=== PATIENT | male | born 1940 | race Caucasian/White ===

== ENCOUNTER 2017-06-14 10:28 | Emergency (ER) | payer MEDICARE, OTHER ==
[2017-06-14 13:24] VITALS: BP 137/73
--- NOTE | 2017-06-14 13:29 | ED ---
HPI Chest Pain - HPI Summary HPI Summary: 76 yr old male with the complaint of chest wall pain. Onset over a week ago. He fell in the hill on ice and landed on the left side of his chest. He states he went to [facility] and had xrays that were negative, but he has continued pain in the left side of his chest with moving, pressing and breathing and he has felt a little winded at times as well. - History of Current Complaint Time Seen by Provider: 06/14/17 13:10 - Allergy/Home Medications Allergies/Adverse Reactions: Allergies Allergy/AdvReac Type Severity Reaction Status Date / Time No Known Allergies Allergy Verified 06/14/17 13:41 Home Medications: Home Medications Allopurinol TAB* [Zyloprim 300 MG TAB*] 06/14/17 [History] Atorvastatin* [Lipitor 40 MG*] 06/14/17 [History] Cholecalciferol TAB* [Vitamin D TAB*] 06/14/17 [History] Lisinopril TAB* [Prinivil TAB 10 MG*] 20 06/14/17 [History] Mesalamine [Apriso] 06/14/17 [History] amLODIPine TAB* [Norvasc 5 mg TAB*] 10 06/14/17 [History] PMH/Surg Hx/FS Hx/Imm Hx Infectious Disease History: Denies: Traveled Outside the [place] in Last 30 Days - Family History Known Family History: Positive: None - Social History Occupation: Retired Review of Systems Constitutional: Negative Positive: Chest Pain Positive: Shortness Of Breath All Other Systems Reviewed And Are Negative: Yes Physical Exam Triage Information Reviewed: Yes Vital Signs Reviewed: Yes Appearance: Positive: Well-Appearing, No Pain Distress Skin: Positive: Warm, Skin Color Reflects Adequate Perfusion Head/Face: Positive: Normal Head/Face Inspection Neck: Positive: Supple, Nontender Respiratory/Lung Sounds: Positive: Clear to Auscultation, Breath Sounds Present , Other - chest wall tenderness over the left anterior chest. Cardiovascular: Positive: RRR. Negative: Murmur Abdomen Description: Positive: Nontender, Other: - obese Musculoskeletal: Positive: Strength/ROM Intact Neurological: Positive: Sensory/Motor Intact, Alert, Oriented to Person Place, Time, CN Intact II-III Psychiatric: Positive: Normal - Alfred Coma Scale Best Eye Response: 4 - Spontaneous Best Motor Response: 6 - Obeys Commands Best Verbal Response: 5 - Oriented Coma Scale Total: 15 Diagnostics - Laboratory Lab Statement: Any lab studies that have been ordered have been reviewed, and results considered in the medical decision making process. - CT chest ct CT Interpretation: No Acute Changes CT Interpretation Completed By: Radiologist Chest Pain Course/Dx - Course Course Of Treatment: 76 yr old with chest wall contusion. DC home good condition. - Diagnoses Provider Diagnoses: Chest wall contusion Discharge - Discharge Plan Condition: Good Disposition: HOME Patient Education Materials: Chest Wall Pain (ED) Referrals: Mae Weathers MD [Primary Care Provider] -
--- NOTE | 2017-06-14 13:44 | RAD ---
HISTORY: Subacute trauma, left-sided chest pain COMPARISONS: None relevant available at the time of dictation TECHNIQUE: Multiple contiguous axial CT scans of the chest were obtained without intravenous contrast. Coronal and sagittal multiplanar reformations are also submitted for review. FINDINGS: The study is limited by the lack of intravenous contrast. This limits evaluation of the solid organs and vasculature. NECK AND THYROID: The lower neck and thyroid are unremarkable. CHEST WALL: There is no lower cervical, axillary, or supraclavicular lymphadenopathy by size criteria. HEART AND PERICARDIUM: Coronary and valvular cardiac calcifications are noted. AORTA AND PULMONARY VASCULATURE: There is mild atherosclerosis of the thoracic aorta. The pulmonary vasculature is unremarkable for technique. MEDIASTINUM: There is no mediastinal lymphadenopathy by size criteria. LUCRECIA: There is no hilar lymphadenopathy by size criteria. AIRWAY AND ESOPHAGUS: The airway is unremarkable, without endobronchial filling defect. The esophagus is grossly normal. LUNG PARENCHYMA: There is linear pleuroparenchymal scarring of the right lung base. PLEURA: No pleural abnormalities are noted. UPPER ABDOMEN: The upper abdomen is unremarkable. BONES AND SOFT TISSUES: There is diffuse osteopenia. There is a chronic compression deformity of T12 without osseous retropulsion. Mild degenerative changes are noted. OTHER: None. IMPRESSION: 1. OSTEOPENIA. 2. MILD PLEUROPARENCHYMAL SCARRING OF THE RIGHT LUNG BASE. 3. NO ACUTE NONCONTRAST CT PATHOLOGY OF THE VISUALIZED PORTION OF THE CHEST.
== END 2017-06-14 14:13 | disposition home or self-care (01) ==
LOC: UCCORT 10:28
DX: S20.219A Contusion of unspecified front wall of thorax, initial encounter (principal); W00.0XXA Fall on same level due to ice and snow, initial encounter; Y93.9 Activity, unspecified; Y92.89 Other specified places as the place of occurrence of the external cause
CPT/HCPCS: 71250; 99202; G0463

== ENCOUNTER 2017-11-11 12:22 | Emergency (ER) | payer MEDICARE ==
[2017-11-11 12:56] VITALS: BP 126/68
--- NOTE | 2017-11-11 13:42 | UC ---
Back Pain HPI - HPI Summary HPI Summary: The patient is a 77-year-old male with right back pain 2-3 months. The pain is constant. He denies any trauma. He denies any UTI symptoms. He does have a remote history of prostate cancer. Was treated with radiation therapy. His pain worsens with twisting. No change with bending. Increases with a deep breath or cough. Had no chest pain or shortness of breath. Denies any abdominal pain. He has been seen a chiropractor. He states that the chiropractic manipulation has not helped at all. - History of Current Complaint Chief Complaint: UCBackPain Stated Complaint: LOWER BACK PAIN R SIDE Time Seen by Provider: 11/11/17 13:32 Hx Obtained From: Patient Onset/Duration: Gradual Onset, Lasting Weeks - 2-3 mos Timing: Constant Severity Initially: Mild Severity Currently: Moderate Pain Intensity: 7 Pain Scale Used: 0-10 Numeric Character: Aching, Throbbing, Spasmodic Aggravating Factor(s): Movement, Cough Alleviating Factor(s): Rest - Allergies/Home Medications Allergies/Adverse Reactions: Allergies Allergy/AdvReac Type Severity Reaction Status Date / Time No Known Allergies Allergy Verified 11/11/17 12:46 Home Medications: Home Medications Allopurinol TAB* [Zyloprim 300 MG TAB*] 300 mg PO DAILY 11/11/17 [History Confirmed 11/11/17] Naproxen Sodium [Aleve] 440 mg PO BID PRN 11/11/17 [History Confirmed 11/11/17] PMH/Surg Hx/FS Hx/Imm Hx Endocrine History: Dyslipidemia Cardiovascular History: Hypertension Neurological History: Other Other Neurological History: ulcerative colitis Cancer History: Prostate Cancer - Surgical History Surgical History: Yes Surgery Procedure, Year, and Place: umbillical. nasal polyp - Family History Known Family History: Positive: Hypertension - Social History Alcohol Use: Rare Substance Use Type: None Smoking Status (MU): Current Every Day Smoker Type: Smokeless Tobacco Amount Used/How Often: 1 can daily Review of Systems Constitutional: Negative Skin: Negative Eyes: Negative ENT: Negative Respiratory: Negative Cardiovascular: Negative Gastrointestinal: Negative Genitourinary: Negative Motor: Negative Neurovascular: Negative Musculoskeletal: Myalgia Neurological: Negative Psychological: Negative Is Patient Immunocompromised?: No All Other Systems Reviewed And Are Negative: Yes Physical Exam Triage Information Reviewed: Yes Appearance: Well-Appearing, No Pain Distress, Well-Nourished Vital Signs: Initial Vital Signs Temp 98.3 F 11/11/17 12:49 Pulse 77 11/11/17 12:49 Resp 18 11/11/17 12:49 BP 126/68 11/11/17 12:49 Pulse Ox 95 11/11/17 12:49 Eye Exam: Normal ENT: Positive: Hearing grossly normal. Negative: Nasal congestion, Nasal drainage, Trismus, Muffled voice, Hoarse voice Neck: Positive: Supple, Nontender, No Lymphadenopathy Respiratory: Positive: Lungs clear, Normal breath sounds, No respiratory distress, No accessory muscle use Cardiovascular: Positive: RRR, No Murmur Abdomen Description: Positive: Nontender, No Organomegaly. Negative: Bruit, CVA Tenderness (R), CVA Tenderness (L), Distended, Hepatomegaly, McBurney's Point Tenderness, Peritoneal Signs, Pulsatile Mass Musculoskeletal: Positive: ROM Intact, No Edema Neurological: Positive: Alert, Muscle Tone Normal Psychological Exam: Normal Skin Exam: Normal Back Pain Course/Dx - Course Course Of Treatment: u dip + protein, + bili - Differential Dx/Diagnosis Provider Diagnoses: back pain of uncertain cause Discharge - Sign-Out/Discharge Documenting (check all that apply): Discharge/Admit/Transfer - Discharge Plan Condition: Stable Disposition: HOME Prescriptions: Cyclobenzaprine TAB* [Flexeril TAB*] 5 mg PO TID PRN #12 tab PRN Reason: Spasms Patient Education Materials: Back Pain (ED) Referrals: Mae Weathers MD [Primary Care Provider] - 4 Days Additional Instructions: I am not sure of the cause of your right sided back pain which has become a chronic issue You had some abnormalities of your urine test You had a small amt of bilirubin and protein in your urine I suspect you have muscle spasms causing your pain and decreased range of motion but because of these abnormalities suggest you follow up with your physician for further investigation. - Billing Disposition and Condition Condition: STABLE Disposition: Home Images Front/Back of Body, Lg (Phillips): 1 - pain here but nontender
--- NOTE | 2017-11-11 14:02 | RAD ---
INDICATION: Mid RIGHT thoracic pain worse with deep inspiration. COMPARISON: October 09, 2010 TECHNIQUE: Dual energy PA and routine lateral views of the chest were obtained. REPORT: Mild linear atelectasis at the LEFT lung base. Negative for pleural effusion or pneumothorax. The heart, pulmonary vasculature, and mediastinal contours are unremarkable. No thoracic fractures evident. IMPRESSION: #. Mild LEFT basilar atelectasis without additional radiographic finding.
[2017-11-11 18:39] LABS: ABS Basophils 0.1 10^3/ul (0-0.2); ABS Eosinophils 0.2 10^3/ul (0-0.6); ABS Lymphocytes 1.7 10^3/ul (1.0-4.8); ABS Monocytes 0.9 10^3/ul (0-0.8); ABS Neutrophils 8.5 10^3/ul (1.5-7.7); ABS Nucleated RBC 0 10^3/ul; Eosinophil % 1.5 % (0-6); Hematocrit 51 % (42-52); Hemoglobin 17.1 g/dl (14.0-18.0); Lymphocyte % 15.2 % (25-47); Mean Corpuscular HGB Conc 34 g/dl (31-36); Mean Corpuscular Hemoglobin 33 pg (27-31); Mean Corpuscular Volume 97 fL (80-94); Mean Platelet Volume 9.8 um3 (7.4-10.4); Nucleated Red Blood Cells % 0.1; Platelet Count 220 10^3/ul (150-450); Red Blood Count 5.26 10^6/ul (4.00-5.40); Red Cell Distribution Width 15 % (10.5-15); White Blood Count 11.4 10^3/ul (3.5-10.8)
[2017-11-11 18:59] LABS: EGFR Non-African American 68.7 (>60)
== END 2017-11-11 14:44 | disposition home or self-care (01) ==
LOC: UCCORT 12:22
DX: M54.9 Dorsalgia, unspecified (principal); I10 Essential (primary) hypertension; F17.220 Nicotine dependence, chewing tobacco, uncomplicated; Z85.46 Personal history of malignant neoplasm of prostate
CPT/HCPCS: 36415; 71046; 80053; 81003; 85025; 85652; 99212; G0463

== ENCOUNTER 2017-12-03 14:00 | Emergency (ER) | payer MEDICARE ==
--- OUTSIDE RECORDS SUMMARY | 2017-12-03 14:11 | XMS REPORT ---
:1940 External Reference #:[id number] Author Organization [facility] Address [address], [address] [place] [address] Phone [phone] Care Team Providers Name Role Phone Mae Weathers MD Care Team Information Freelance Photographer Unavailable Mae Weathers MD Primary Care Physician Unavailable Payers Type Date Identification Numbers Payment Provider Subscriber Commercial Policy Number: [id number] Today Options Medicare Mike Chavez PayID: [id number] [address] [address] [place] [address] Workers Compensation Policy Number: [employer] Mike Chavez [id number] Group Name: Workers Compensation [address] PayID: [id number] [place] [address] Problems Date Description Provider Status Onset: 10/06/2012 Localized, primary osteoarthritis Ascencion Muhammad M.D., Active FACS Onset: 10/19/2012 Gouty arthropathy Ascencion Muhammad M.D., Active FACS Onset: 01/31/2015 Chronic left-sided ulcerative Mae Weathers MD Active colitis Onset: 01/31/2015 Malignant tumor of prostate Mae Weathers MD Active Onset: 01/31/2015 Pure hypercholesterolemia Mae Weathers MD Active Onset: 01/31/2015 Essential hypertension Mae Weathers MD Active Onset: 01/31/2015 Idiopathic gout, right ankle and Mae Weathers MD Active foot Onset: 01/31/2015 Vitamin D deficiency Mae Weathers MD Active Onset: 05/01/2003 Enthesopathy Active Onset: 01/31/2015 Psoriasis Mae Weathers MD Active Onset: 01/31/2015 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 Active Onset: 11/20/2016 Knee joint effusion Naga Bustamante M.D. Active Onset: 01/04/2017 Sciatica Mae Weathers MD Active Onset: 05/19/2017 Malaise and fatigue Mae Weathers MD Active Onset: 05/19/2017 Disorder of nasal cavity Mae Weathers MD Active Onset: 08/19/2017 Chest pain Mae Weathers MD Active Onset: 08/19/2017 Benign prostatic hypertrophy without Mae Weathers MD Active outflow obstruction Family History Date Family Member(s) Problem(s) Comments Father due to Unknown Causes () Mother Brain tumor : (age 74 Years) Mother due to Cancer, Brain Children 4 Siblings 3 First Sister due to Anesthetic () Overdose In Surgery Social History Type Date Description Comments Education Highest level completed, 12th grade Lives With Girlfriend Diet Patient follows no dietary restrictions Pets None Occupation Retired CONSTRUCTION; BUT STILL WORKS PT [employer] ADL's/IADL's Independent with all ADL's ADL's/IADL's Independent with all IADL's Hobbies Golfing Hobbies Gambling Hobbies Sports Cigarette Use Never Smoked Cigarettes Smokeless Tobacco Current Smokeless Tobacco User, Uses Occasionally ETOH Use Rarely consumes alcohol 2 DR/MO Smoking Chews Tobacco A couple cans per week Smoking Chews Tobacco Patient quit chewing about 2 weeks ago. Daily Caffeine Current Caffeine User Daily Caffeine Consumes on average 1 cup of regular coffee per day Allergies, Adverse Reactions, Alerts Date Description Reaction Status Severity Comments 10/06/2012 NKDA active Medications Medication Date Status Form Strength Qnty SIG Indications Ordering Provider Nitroglycerin 08/19 Active Tablets Sub 0.4mg 25tab 1 tab s under jaz Weathers MD every 5 min x 3 for cp; call 911 if no relief Tamsulosin HCL 08/19 Active Capsules 0.4mg 30cap take 1 s capsules Jasiel by alexander HENNESSY every day Apriso 01/04 Active Caps ER 24HR 0.375gm 360ca Take Four ps Capsules Olga Weathers MD Every Day Vitamin D Active Capsules 1000Unit 60cap 1 po qd Unknown / s Amlodipine Active Tablets 10mg 90tab 1 by mouth Besylate / s every day MD Jasiel Atorvastatin Active Tablets 40mg 90tab 1 by mouth Mae Calcium s every charlie Weathers MD Allopurinol Active Tablets 300mg 90tab take 1 s tablet by alexander Weathers MD every day Lisinopril Active Tablets 20mg 90tab take 1 s tablet by alexander Weathers MD every day Aspir-Low Active Tablets DR 81mg 1 by mouth / every day Augmented 04/29 Hx Ointment 0.05% 15gm apply L40.9 Betamethasone sparingly Jacob Weathers - to 08/19 affected areas on left forearm at bedtime Indomethacin 11/20 Hx Capsules 50mg 14cap 1 tab by s mouth Pompo, three M.D. times a day as needed Indomethacin 06/22 Hx Capsules 50mg 30cap 1 by mouth s 3x/day Jasiel, - with food 11/20 or snack as needed for acute gout symptoms, taper quickly Ciclopirox 06/22 Hx Cream 0.77% 15gm apply to B35.4 affected Frida Weathers areas 11/20 twice a /2016 day Indomethacin 01/31 Hx Capsules 50mg 40cap 1 by mouth s 3x/day Jasiel - with food 06/22 or snack as needed for acute gout symptoms, taper quickly Azulfidine 01/31 Hx Tablets 500mg Frida Weathers MD 06/22 No Active 10/06 Hx Unknown Medications - 10/06 Aspirin Hx Chewtabs 81mg 1 po qd Unknown Children - 01/31 Indocin Hx Suppository 30uni 1 po qd Unknown / ts for 2 weeks Furosemide 00 Hx Tablets 30tab 1 po qd Unknown / s Amlodipine Hx Tablets 10mg 90tab 1 po qd Unknown Bes s Flomax Hx Capsules 0.4mg 30cap po qd Unknown / s Lotrel 00 Hx Capsules 10-20mg 30cap 1 po qd Unknown / s Glucosamine Hx Tablets 1 po qd Unknown - 01/31 Apriso 00 Hx Caps ER 24HR 0.375gm 360ca 4 by mouth Ame /0000 ps Every day Frida Weathers MD 11/20 Aspir-Low Hx Tablets DR 81mg 1 by mouth Unknown / every day - 11/20 Hydrocortisone Hx Enema 100mg/60M Use 1 Unknown L Enema - Rectally 11/20 bid Directed Immunizations CPT Code Status Date Vaccine Lot # [id number] Given 04/29/2017 Tdap injection [id number] Given 05/28/2000 Tetnus Injection Vital Signs Date Vital Result Comment 11/24/2017 BP Systolic Sitting Left Arm 126 mmHg BP Diastolic Sitting Left Arm 74 mmHg Body Temperature 97.9 F Heart Rate 74 /min Respiratory Rate 18 /min Height 69 inches 5'9" Weight 257.25 lb BMI (Body Mass Index) 38.0 kg/m2 BSA (Body Surface Area) 2.30 m2 [place] body weight in kilograms 73 08/23/2017 BP Systolic Sitting Left Arm 122 mmHg BP Diastolic Sitting Left Arm 80 mmHg Heart Rate 75 /min Respiratory Rate 16 /min Height 69 inches 5'9" Weight 267.00 lb BMI (Body Mass Index) 39.4 kg/m2 BSA (Body Surface Area) 2.34 m2 [place] body weight in kilograms 73 08/19/2017 BP Systolic 126 mmHg BP Diastolic 76 mmHg Body Temperature 96.9 F Heart Rate 74 /min Height 69 inches 5'9" Weight 264.00 lb BMI (Body Mass Index) 39.0 kg/m2 BSA (Body Surface Area) 2.32 m2 [place] body weight in kilograms 73 O2 % BldC Oximetry 94 % 05/19/2017 BP Systolic Sitting Left Arm 128 mmHg BP Diastolic Sitting Left Arm 80 mmHg Body Temperature 97.8 F Heart Rate 67 /min Weight 263.00 lb O2 % BldC Oximetry 94 % 05/04/2017 BP Systolic Sitting Left Arm 134 mmHg BP Diastolic Sitting Left Arm 78 mmHg Body Temperature 97.8 F Heart Rate 83 /min Height 68.75 inches 5'8.75" Weight 262.00 lb BMI (Body Mass Index) 39.0 kg/m2 BSA (Body Surface Area) 2.31 m2 [place] body weight in kilograms 72 O2 % BldC Oximetry 94 % 04/29/2017 BP Systolic Sitting Left Arm 146 mmHg BP Diastolic Sitting Left Arm 84 mmHg Body Temperature 97.6 F Heart Rate 70 /min Height 68.75 inches 5'8.75" Weight 263.00 lb BMI (Body Mass Index) 39.1 kg/m2 BSA (Body Surface Area) 2.31 m2 [place] body weight in kilograms 72 O2 % BldC Oximetry 97 % 01/04/2017 BP Systolic 122 mmHg BP Diastolic 80 mmHg Height 70 inches 5'10" Weight 264.00 lb BMI (Body Mass Index) 37.9 kg/m2 BSA (Body Surface Area) 2.35 m2 [place] body weight in kilograms 75 11/20/2016 BP Systolic Sitting Left Arm 128 mmHg BP Diastolic Sitting Left Arm 81 mmHg Heart Rate 66 /min Height 70 inches 5'10" Weight 265.00 lb BMI (Body Mass Index) 38.0 kg/m2 BSA (Body Surface Area) 2.35 m2 [place] body weight in kilograms 75 06/22/2016 BP Systolic Sitting Left Arm 126 mmHg BP Diastolic Sitting Left Arm 68 mmHg Body Temperature 98.9 F Heart Rate 64 /min Respiratory Rate 16 /min Height 69 inches 5'9" Weight 275.00 lb BMI (Body Mass Index) 40.6 kg/m2 BSA (Body Surface Area) 2.37 m2 [place] body weight in kilograms 73 01/31/2015 BP Systolic 136 mmHg BP Diastolic 76 mmHg Body Temperature 97.5 F Heart Rate 76 /min Respiratory Rate 22 /min Height 69.5 inches 5'9.50" Weight 266.00 lb BMI (Body Mass Index) 38.7 kg/m2 BSA (Body Surface Area) 2.34 m2 01/03/2013 BP Systolic Sitting Right Arm 136 mmHg BP Diastolic Sitting Right Arm 82 mmHg Heart Rate 55 /min Respiratory Rate 18 /min Height 69 inches 5'9" Weight 263.00 lb BMI (Body Mass Index) 38.8 kg/m2 BSA (Body Surface Area) 2.32 m2 10/06/2012 BP Systolic Sitting Right Arm 128 mmHg BP Diastolic Sitting Right Arm 78 mmHg Height 69 inches 5'9" Weight 255.00 lb BMI (Body Mass Index) 37.7 kg/m2 BSA (Body Surface Area) 2.29 m2 Results Test Date Test Result H/L Range Note Urine Dipstick 11/24/2017 Ua Protein 1+ High Negative Ua PH 5 Low 6.5-7.5 Ua Specific Mousie 1.030 1.010-1.030 Comp Metabolic Panel 11/11/2017 Sodium 138 mmol/L 135-145 1 Potassium 4.0 mmol/L 3.5-5.0 1 Chloride 103 mmol/L 101-111 1 Co2 Carbon Dioxide 24 mmol/L 22-32 1 Anion Gap 11 mmol/L 2-11 1 Glucose 104 mg/dL High 70-100 1 Blood Urea Nitrogen 15 mg/dL 6-24 1 Creatinine 1.05 mg/dL 0.67-1.17 1 BUN/Creatinine Ratio 14.3 8-20 1 Calcium 9.5 mg/dL 8.6-10.3 1 Total Protein 7.5 g/dL 6.4-8.9 1 Albumin 4.2 g/dL 3.2-5.2 1 Globulin 3.3 g/dL 2-4 1 Albumin/Globulin Ratio 1.3 1-3 1 Total Bilirubin 0.90 mg/dL 0.2-1.0 1 Alkaline Phosphatase 84 U/L 34-104 1 Alt 15 U/L 7-52 1 Ast 16 U/L 13-39 1 Egfr Non- 68.7 >60 1 Egfr 83.1 >60 1, 2 CBC Auto Diff 11/11/2017 White Blood Count 11.4 10^3/uL High 3.5-10.8 1 Red Blood Count 5.26 10^6/uL 4.00-5.40 1 Hemoglobin 17.1 g/dL 14.0-18.0 1 Hematocrit 51 % 42-52 1 Mean Corpuscular Volume 97 fL High 80-94 1 Mean Corpuscular Hemoglobin 33 pg High 27-31 1 Mean Corpuscular HGB Conc 34 g/dL 31-36 1 Red Cell Distribution Width 15 % 10.5-15 1 Platelet Count 220 10^3/uL 150-450 1 Mean Platelet Volume 9.8 um3 7.4-10.4 1 Abs Neutrophils 8.5 10^3/uL High 1.5-7.7 1 Abs Lymphocytes 1.7 10^3/uL 1.0-4.8 1 Abs Monocytes 0.9 10^3/uL High 0-0.8 1 Abs Eosinophils 0.2 10^3/uL 0-0.6 1 Abs Basophils 0.1 10^3/uL 0-0.2 1 Abs Nucleated RBC 0 10^3/uL 1 Granulocyte % 74.3 % 38-83 1 Lymphocyte % 15.2 % Low 25-47 1 Monocyte % 8.2 % High 0-7 1 Eosinophil % 1.5 % 0-6 1 Basophil % 0.8 % 0-2 1 Nucleated Red Blood Cells % 0.1 1 Laboratory test finding 11/11/2017 Erythrocyte Sed Rate 16 mm/Hr 0-40 1 , 3 Poc Urinalysis 11/11/2017 Poc Glucose, Urine Negative Negative Poc Bilirubin, Urine 1+ Negative Poc Ketone, Urine Trace Negative Poc Specific M[place]ie, Urine 1.025 1.010-1.030 Poc Blood, Urine Negative Negative Poc pH, Urine 5.5 5-9 Poc Protein, Urine 1+ Negative Poc Urobilinogen, Urine 1.0 Negative Poc Nitrite, Urine Negative Negative Poc Leukocytes, Urine Negative Negative Poc Color, Urine Melania Poc Clarity, Urine Clear 4 PSA (Free And 08/19/2017 Prostate-specific antigen,Seru 0.4 ng/mL 0.0- 4.0 5, 6 Total) PSA,Free 0.06 ng/mL N/A 5, 7 %Free PSA 15.0 % . 5, 8 LDL Cholesterol Profile 08/18/2017 Cholesterol 155 mg/dL <200 9, 10 Triglycerides 110 mg/dL <150 9, 11 HDL Cholesterol 34 mg/dL Low >40 9, 12 LDL-Cholesterol 99 mg/dL < 100 9, 13 Reflex add FT3? Y 9 Reflex add FT4? Y 9 TSH Reflex FT4 And/Or FT3 08/18/2017 Thyroid Stim Hormone 2.61 uIU/mL 0.30-4.20 9 Reflex add FT3? Y 9 Reflex add FT4? Y 9 Laboratory test 08/18/2017 Troponin-I < 0.015 ng/mL 9, 14 finding Laboratory test 08/17/2017 Troponin-I < 0.015 ng/mL 9, 15 finding Laboratory test 05/19/2017 Thyroid Stim Hormone 1.41 uIU/mL 0.30-4.20 16 finding PSA (Free And Total) 04/20/2017 Prostate-specific 0.4 ng/mL 0.0-4.0 17, 18 antigen,Seru PSA,Free 0.05 ng/mL N/A 17, 19 %Free PSA 12.5 % . 17, 20 LDL Cholesterol Profile 04/20/2017 Cholesterol 140 mg/dL <200 17, 21 Triglycerides 138 mg/dL <150 17, 22 HDL Cholesterol 35 mg/dL Low >40 17, 23 LDL-Cholesterol 77 mg/dL < 100 17, 24 Comprehensive Metabolic Panel 04/20/2017 Glucose 90 mg/dL 74-106 17 BUN 9 mg/dL 7-18 17 Creatinine 1.1 mg/dL 0.6-1.3 17 Glom Filtration Rate, Estimate >60 mL/min >60 17 If >60 mL/min >60 17, 25 BUN/Creat 8.1 ratio 17 Sodium 139 mmol/L 136-145 17 Potassium 4.0 mmol/L 3.5-5.1 17 Chloride 102 mmol/L 98-107 17 Carbon Dioxide 29 mmol/L 21-32 17 Anion Gap 8 mEq/L 8-16 17 Calcium 9.3 mg/dL 8.5-10.1 17 Total Protein 8.0 g/dL 6.4-8.2 17 Albumin 3.6 g/dL 3.4-5.0 17 Globulin 4.4 g/dL High 1.9-4.3 17 Alb/Glob 0.8 ratio 17 Bilirubin,Total 0.8 mg/dL 0.2-1.0 17 Sgot/Ast 20 U/L 15-37 17 SGPT/Alt 31 U/L 12-78 17 Alkaline Phosphatase 118 U/L High 45-117 17 Laboratory test finding 04/20/2017 Uric Acid 4.7 mg/dL 3.5-7.2 17 CBS W/Automated Diff 04/20/2017 White Blood Count 10.2 K/uL 3.4-10.5 17 Red Blood Count 5.32 M/uL 4.20-5.80 17 Hemoglobin 17.3 gm/dL High 12.8-17.0 17 Hematocrit 50.5 % High 38.0-48.0 17 Mean Cell Volume 94.9 fl 80.0-96.0 17 Mean Corpuscular HGB 32.5 pg 27.0-33.0 17 Mean Corpuscular HGB Conc 34.3 g/dL 31.7-36.0 17 Platelet Count 239 K/uL 155-360 17 Red Cell Distri Width SD 52.0 fl High 36-51 17 Red Cell Distri Width %CV 15.2 % 11.6-15.8 17 Mean Platelet Volume 12.0 fL High 6.6-10.6 17 Neut% 67.3 % 33.0-73.0 17 Lymph % 21.4 % 20.0-42.0 17 [place] % 8.9 % 0.0-10.0 17 Eo% 2.0 % 0.0-6.6 17 Bas% 0.4 % 0.0-1.1 17 Neut# 6.88 K/uL 1.8-7.0 17 Lymph # 2.18 K/uL 1.0-4.0 17 [place] # 0.91 K/uL High 0.0-0.8 17 Eos # 0.20 K/uL 0.0-0.5 17 Baso # 0.04 K/uL 0.0-0.1 17 Laboratory test 11/20/2016 Synovial FLD NO CRYSTALS SEEN None Seen 26, 27 finding Crystals Synovial FLD Glucose 118 mg/dL . 26, 28 Laboratory test finding 06/23/2016 Prostate Specific 0.58 ng/mL < 4.0 29 , 30 Antigen Comprehensive Metabolic 06/23/2016 Glucose 98 mg/dL 74-106 29 Panel BUN 15 mg/dL 7-18 29 Creatinine 1.1 mg/dL 0.6-1.3 29 Glom Filtration Rate, Estimate >60 mL/min >60 29 If >60 mL/min >60 29, 31 BUN/Creat 13.6 ratio 29 Sodium 139 mmol/L 136-145 29 Potassium 4.6 mmol/L 3.5-5.1 29 Chloride 104 mmol/L 98-107 29 Carbon Dioxide 29 mmol/L 21-32 29 Anion Gap 6 mEq/L Low 8-16 29 Calcium 8.9 mg/dL 8.5-10.1 29 Total Protein 8.0 g/dL 6.4-8.2 29 Albumin 3.5 g/dL 3.4-5.0 29 Globulin 4.5 g/dL High 1.9-4.3 29 Alb/Glob 0.8 ratio 29 Bilirubin,Total 0.7 mg/dL 0.2-1.0 29 Sgot/Ast 22 U/L 15-37 29 SGPT/Alt 32 U/L 12-78 29 Alkaline Phosphatase 93 U/L 45-117 29 Laboratory test finding 06/23/2016 Uric Acid 5.1 mg/dL 3.5-7.2 29 LDL Cholesterol Profile 06/23/2016 Cholesterol 220 mg/dL High <200 29, 32 Triglycerides 149 mg/dL <150 29, 33 HDL Cholesterol 34 mg/dL Low >40 29, 34 LDL-Cholesterol 156 mg/dL < 100 29, 35 CBS W/Automated Diff 06/23/2016 White Blood Count 10.6 K/uL High 3.4-10.5 29 Red Blood Count 5.23 M/uL 4.20-5.80 29 Hemoglobin 16.7 gm/dL 12.8-17.0 29 Hematocrit 49.2 % High 38.0-48.0 29 Mean Cell Volume 94.1 fl 80.0-96.0 29 Mean Corpuscular HGB 31.9 pg 27.0-33.0 29 Mean Corpuscular HGB Conc 33.9 g/dL 31.7-36.0 29 Platelet Count 236 K/uL 150-400 29 Red Cell Distri Width SD 53.7 fl High 36-51 29 Red Cell Distri Width %CV 15.8 % 11.6-15.8 29 Mean Platelet Volume 12.2 fL High 6.6-10.6 29 Neut% 61.8 % 33.0-73.0 29 Lymph % 25.2 % 20.0-42.0 29 [place] % 10.2 % High 0.0-10.0 29 Eo% 2.3 % 0.0-6.6 29 Bas% 0.5 % 0.0-1.1 29 Neut# 6.52 K/uL 1.8-7.0 29 Lymph # 2.66 K/uL 1.0-4.0 29 [place] # 1.08 K/uL High 0.0-0.8 29 Eos # 0.24 K/uL 0.0-0.5 29 Baso # 0.05 K/uL 0.0-0.1 29 230 Ua Routine 04/11/2015 Ua Bilirubin Negative Ua Blood Negative Ua Clarity Not Entered Ua Color Not Entered Ua Glucose Negative Ua Ketones Negative Ua Leuko Negative Ua Nitrite Negative Ua PH 7.0 5.0-7.5 Ua Protein Negative Ua Specific M[place]ie 1.020 1.003-1.030 Ua Urobilinogen 1.0 E.U./dL 0.0-1.0 Laboratory test finding 03/28/2015 Total Psa Only 1.00 ng/mL 0.00-4.00 CBC/Manual Differential 01/31/2015 White Blood Count 9.6 K/uL 3.4-10.5 Red Blood Count 5.11 M/uL 4.20-5.80 Hemoglobin 16.4 gm/dL 12.8-17.0 Hematocrit 48.1 % High 38.0-48.0 Mean Cell Volume 94.1 fl 80.0-96.0 Mean Corpuscular HGB 32.1 pg 27.0-33.0 Mean Corpuscular HGB Conc 34.1 g/dL 31.7-36.0 Platelet Count 272 K/uL 150-400 Red Cell Distri Width %CV 14.6 % 11.6-15.8 Mean Platelet Volume 12.2 fL High 6.6-10.6 Total Cells Counted 100 #CELLS Neutrophils% 75 % High 33-73 Lymph% 16 % Low 17-56 Platelet Estimate NORMAL Band% 1 % 0-8 Monocyte% 7 % 0-10 Eosinophil% 1 % 0-5 RBC Morphology NORMAL Comprehensive Metabolic Panel 01/31/2015 Glucose 88 mg/dL 74-106 BUN 11 mg/dL 7-18 Creatinine 1.1 mg/dL 0.6-1.3 Glom Filtration Rate, Estimate >60 mL/min >60 If >60 mL/min >60 36 BUN/Creat 10.0 ratio Sodium 138 mmol/L 136-145 Potassium 4.0 mmol/L 3.5-5.1 Chloride 103 mmol/L 98-107 Carbon Dioxide 27 mmol/L 21-32 Anion Gap 8 mEq/L 8-16 Calcium 9.5 mg/dL 8.5-10.1 Total Protein 8.2 g/dL 6.4-8.2 Albumin 3.8 g/dL 3.4-5.0 Globulin 4.4 g/dL High 1.9-4.3 Alb/Glob 0.9 ratio Bilirubin,Total 0.7 mg/dL 0.2-1.0 Sgot/Ast 23 U/L 15-37 SGPT/Alt 32 U/L 12-78 Alkaline Phosphatase 96 U/L 45-117 LDL Cholesterol Profile 01/31/2015 Cholesterol 184 mg/dL < 200 37 Triglycerides 128 mg/dL < 150 38 HDL Cholesterol 30 mg/dL > 40 39 LDL-Cholesterol 128 mg/dL < 100 40 Laboratory test finding 01/31/2015 Uric Acid 4.9 mg/dL 3.5-7.2 Vitamin D,25-Hydroxy 26.0 ng/mL Low 30.0-100.0 41 1 [id number] 2 Because ethnic data is not always readily available, this report includes an eGFR for both -Americans and non- Americans. The National Kidney Disease Education Program (NKDEP) does not endorse the use of the MDRD equation for patients that are not between the ages of 18 and 70, are , have extremes of body size, muscle mass, or nutritional status, or are non- or non-. According to the National Kidney Foundation, irrespective of diagnosis, the stage of the disease is based on the level of kidney function: Stage Description GFR(mL/min/1.73 m(2)) 1 Kidney damage with normal or decreased GFR 90 2 Kidney damage with mild decrease in GFR 60-89 3 Moderate decrease in GFR 30-59 4 Severe decrease in GFR 15-29 5 Kidney failure <15 (or dialysis) 3 [id number] 4 Steel Post Installer: [id number] R35.1 N40.0 6 Nehemias ECLIA methodology. According to the [employer] U[employer] Association, Serum PSA should decrease and remain at undetectable levels after radical prostatectomy. The AUA defines biochemical recurrence as an initial PSA value 0.2 ng/mL or greater followed by a subsequent confirmatory PSA value 0.2 ng/mL or greater. Values obtained with different assay methods or kits cannot be used interchangeably. Results cannot be interpreted as absolute evidence of the presence or absence of malignant disease. 7 Nehemias ECLIA methodology. 8 The table below lists the probability of prostate cancer for men with non-suspicious DUGLAS results and total PSA between 4 and 10 ng/mL, by patient age (Berkley et al, BARRY 1998, 279:1542). % Free PSA 50-64 yr 65-75 yr 0.00-10.00% 56% 55% 10.01-15.00% 24% 35% 15.01-20.00% 17% 23% 20.01-25.00% 10% 20% >25.00% 5% 9% Please note: Berkley et al did not make specific recommendations regarding the use of percent free PSA for any other population of men. Performed at: [facility] [address] [id number] Application Coordinator: Shena Palencia MD, Phone: [phone] 9 CHEST PAIN 10 Reference Guidelines*: Desirable: ........... < 200 mg/dL Borderline High: ..... 200-239 mg/dL High: ................ >=240 mg/dL * The National Cholesterol Education Program (NCEP) 11 Reference Guidelines*: Normal: ............. < 150 mg/dL Borderline High: .... 150-199 mg/dL High: ............... 200-499 mg/dL Very High: .......... > 500 mg/dL * Source: National Cholesterol Education Program (NCEP) 12 Reference Guidelines*: Low HDL: ..... < 40 mg/dL Normal: ..... 40-60 mg/dL Desirable: ... > 60 mg/dL *The National Cholesterol Education Program(NCEP) 13 Reference Guidelines*: Optimal:........... <100 mg/dL Near Optimal....... 100-129 mg/dL Borderline High.... 130-159 mg/dL High............... 160-189 mg/dL Very High.......... >=190 mg/dL * Source: National Cholesterol Education Program (NCEP) 14 0.0 - 0.045 ng/mL: Normal 0.046 - 0.5 ng/mL: Suggestive 0.6 - 1.5 ng/mL: Consistent 15 0.0 - 0.045 ng/mL: Normal 0.046 - 0.5 ng/mL: Suggestive 0.6 - 1.5 ng/mL: Consistent 16 R53.83 17 E78.00 C61 Z13.0 I10 18 Nehemias ECLIA methodology. According to the [employer] U[employer] Association, Serum PSA should decrease and remain at undetectable levels after radical prostatectomy. The AUA defines biochemical recurrence as an initial PSA value 0.2 ng/mL or greater followed by a subsequent confirmatory PSA value 0.2 ng/mL or greater. Values obtained with different assay methods or kits cannot be used interchangeably. Results cannot be interpreted as absolute evidence of the presence or absence of malignant disease. 19 Nehemias ECLIA methodology. 20 The table below lists the probability of prostate cancer for men with non-suspicious DUGLAS results and total PSA between 4 and 10 ng/mL, by patient age (Berkley et al, BARRY 1998, 279:1542). % Free PSA 50-64 yr 65-75 yr 0.00-10.00% 56% 55% 10.01-15.00% 24% 35% 15.01-20.00% 17% 23% 20.01-25.00% 10% 20% >25.00% 5% 9% Please note: Berkley et al did not make specific recommendations regarding the use of percent free PSA for any other population of men. Performed at: - [facility] [address] [id number] Application Coordinator: Shena Palencia MD, Phone: [phone] 21 Reference Guidelines*: Desirable: ........... < 200 mg/dL Borderline High: ..... 200-239 mg/dL High: ................ >=240 mg/dL * The National Cholesterol Education Program (NCEP) 22 Reference Guidelines*: Normal: ............. < 150 mg/dL Borderline High: .... 150-199 mg/dL High: ............... 200-499 mg/dL Very High: .......... > 500 mg/dL * Source: National Cholesterol Education Program (NCEP) 23 Reference Guidelines*: Low HDL: ..... < 40 mg/dL Normal: ..... 40-60 mg/dL Desirable: ... > 60 mg/dL *The National Cholesterol Education Program(NCEP) 24 Reference Guidelines*: Optimal:........... <100 mg/dL Near Optimal....... 100-129 mg/dL Borderline High.... 130-159 mg/dL High............... 160-189 mg/dL Very High.......... >=190 mg/dL * Source: National Cholesterol Education Program (NCEP) 25 Note: Persistent reduction for 3 months or more in an eGFR <60 mL/min/1.73 m2 defines CKD. Patients with eGFR values >/=60 mL/min/1.73 m2 may also have CKD if evidence of persistent proteinuria is present. The original MDRD equation for estimated GFR is not valid for patients less than 18 years of age. Additional information may be found at www.kdoqi.org. 26 M25.562 27 NO CRYSTALS SEEN 28 : Peritoneal : Pleural : Synovial : : : : : : : Transudate : Exudate : : : : : : : : Not Estab. : Equal to simultaneously drawn plasma : : : : The method performance specifications have not been established for this test in body fluid. The test result should be integrated into clinical context for interpretation. The reference intervals and other method performance specifications have not been established for this test. The test result should be integrated into the clinical context for interpretation. Performed at: [facility] [address] [id number] Application Coordinator: Shena Palencia MD, Phone: [phone] 29 K53.738 E78.00 M10.071 I10 C61 30 THIS ASSAY IS NOT INTENDED A CANCER SCREENING TEST The concentration of PSA in a given specimen, determined with assays from different manufacturers, can vary due to differences in assay methods and reagent specificity. Values obtained from different assay methods cannot be used interchangeably. Method: Human Longevity [employer] Chemiluminescent immunoassay. 31 Note: Persistent reduction for 3 months or more in an eGFR <60 mL/min/1.73 m2 defines CKD. Patients with eGFR values >/=60 mL/min/1.73 m2 may also have CKD if evidence of persistent proteinuria is present. The original MDRD equation for estimated GFR is not valid for patients less than 18 years of age. Additional information may be found at www.kdoqi.org. 32 Reference Guidelines*: Desirable: ........... < 200 mg/dL Borderline High: ..... 200-239 mg/dL High: ................ >=240 mg/dL * The National Cholesterol Education Program (NCEP) 33 Reference Guidelines*: Normal: ............. < 150 mg/dL Borderline High: .... 150-199 mg/dL High: ............... 200-499 mg/dL Very High: .......... > 500 mg/dL * Source: National Cholesterol Education Program (NCEP) 34 Reference Guidelines*: Low HDL: ..... < 40 mg/dL Normal: ..... 40-60 mg/dL Desirable: ... > 60 mg/dL *The National Cholesterol Education Program(NCEP) 35 Reference Guidelines*: Optimal:........... <100 mg/dL Near Optimal....... 100-129 mg/dL Borderline High.... 130-159 mg/dL High............... 160-189 mg/dL Very High.......... >=190 mg/dL * Source: National Cholesterol Education Program (NCEP) 36 Note: Persistent reduction for 3 months or more in an eGFR <60 mL/min/1.73 m2 defines CKD. Patients with eGFR values >/=60 mL/min/1.73 m2 may also have CKD if evidence of persistent proteinuria is present. The original MDRD equation for estimated GFR is not valid for patients less than 18 years of age. Additional information may be found at www.kdoqi.org. 37 Reference Guidelines*: Desirable: ........... < 200 mg/dL Borderline High: ..... 200-239 mg/dL High: ................ >=240 mg/dL * The National Cholesterol Education Program (NCEP) 38 Reference Guidelines*: Normal: ............. < 150 mg/dL Borderline High: .... 150-199 mg/dL High: ............... 200-499 mg/dL Very High: .......... > 500 mg/dL * Source: National Cholesterol Education Program (NCEP) 39 Reference Guidelines*: Low HDL: ..... < 40 mg/dL Normal: ..... 40-60 mg/dL Desirable: ... > 60 mg/dL *The National Cholesterol Education Program(NCEP) 40 Reference Guidelines*: Optimal:........... <100 mg/dL Near Optimal....... 100-129 mg/dL Borderline High.... 130-159 mg/dL High............... 160-189 mg/dL Very High.......... >=190 mg/dL * Source: National Cholesterol Education Program (NCEP) 41 Vitamin D deficiency has been defined by the [employer] of [employer] and an Endocrine Society practice guideline as a level of serum 25-OH vitamin D less than 20 ng/mL (1,2). The Endocrine Society went on to further define vitamin D insufficiency as a level between 21 and 29 ng/mL (2). 1. IOM ([employer] of [employer]). 2010. Dietary reference intakes for calcium and D. [place]: The National Academies Press. 2. Khurram MF, Kassandra NC, Sabas TOLEDO, et al. Evaluation, treatment, and prevention of vitamin D deficiency: an Endocrine Society clinical practice guideline. JCEM. 2010; 96(7):1911-30. Performed at: RN - [facility] [address] [id number] Application Coordinator: Shena Palencia MD, Phone: [phone] Procedures Date CPT Code Description Status Comment 08/23/2017 78342 EKG-Tracing And Report Completed 08/18/2017 88802 Echocardiogram Complete Completed 11/23/201679096 Asp./Injection major joint Completed 11/20/2016 41293 Radiology, Knee 3 Views Completed 11/20/201682485 Asp./Injection major joint Completed 01/31/2015 81611 EKG-Tracing And Report Completed 05/10/2014 Colonoscopy Completed COLITIS, SYAM 07/20/2013 27199 Stress Test Physician Super Only Completed 07/20/2013 18942 Stress Test Physician Super Only Completed 07/20/2013 67152 Myocardial Imaging Tomographic Multiple Completed Study AT Rest [facility] Stress 07/20/2013 08281 Stress Test Interpre And Report Only Completed 01/03/2013 78705 EKG-Tracing And Report Completed 12/30/2012 68577 Stress Test Interpre And Report Only Completed 12/30/2012 69563 Stress Test Physician Super Only Completed 12/30/2012 98502 Stress Test Physician Super Only Completed 12/30/2012 60084 Myocardial Imaging Tomographic Multiple Completed Study AT Rest [facility] Stress 12/24/2012 55111 Echocardiogram Complete Completed 10/06/2012 38068 Radiology, Knee 3 Views Completed 10/08/2009 11691 EKG Interpretation And Report Only Completed 11/08/2007 68288 EKG-Tracing And Report Completed 02/03/2000 77138 EKG Interpretation And Report Only Completed 12/31/1999 13189 EKG Interpretation And Report Only Completed Encounters Type Date Location Provider CPT E/M Dx Office Visit 11/24/2017 Family Medicine [place] [address] N40.0 2:15p Office Visit 08/23/2017 [place] [address] R07.2 1:30p E66.01 Office Visit 08/19/2017 3:30p [place] [address] R07.9 N40.0 Office Visit 05/19/2017 2:45p [place] [address] R53.83 R09.81 K62.1 Office Visit 05/04/2017 2:15p Family Medicine Galilea Hamm, PNP-, 02557 H65.02 CLIN NURSE, Ibclc H81.10 Office Visit 04/29/2017 9:00a Family Medicine Mae Weathers MD G0438 Z00.00 I10 E78.00 M10.071 Z23 K51.50 M54.41 K62.1 L40.9 C61 Office Visit 01/04/2017 9:45a [place] [address] M54.41 E78.00 Office Visit 11/20/2016 8:45a Orthopaedic Office Naga Bustamante M.D. 00792 M25.562 M25.462 Office Visit 06/22/2016 9:00a [place] [address] K51.511 C61 I10 E78.00 M10.071 B35.4 Office Visit 01/31/2015 10:00a Family Medicine Mae Weathers MD G0439 Z00.01 K51.511 C61 I10 E78.0 M10.071 M17.0 E55.9 L40.9 D48.1 Office Visit 01/03/2013 11:00a [place] [address] 786.51 401.1 272.0 Office Visit 11/09/2012 8:45a Orthopaedic Office Ascencion Muhammad, 02957 715.16 M.DJuliano, FACS 274.00 Office Visit 10/19/2012 8:30a Orthopaedic Office Ascencion Muhammad, 36162 715.16 M.Jimmie, FACS 274.00 Office Visit 10/06/2012 9:00a Orthopaedic Office Ascencion Muhammad, 51365 719.46 M.DJuliano, FACS 715.16 274.00 Office Visit 11/08/2007 11:00a Cardiology Office Mac Daniels, 62674 786.51 MAngelika, FACC 278.00 Office Visit 07/09/2006 10:45a Operating Room Steven Galvan M.D. 19697 478.70 471.9 305.1 Plan of Care Future Appointment(s):01/25/2018 9:15 am - Chuy Hoyt MD at [facility]0005/04/2018 9:00 am - Mae Weathers MD at [facility] [place]11/24/2017 - Kris Jean-Baptiste, FNPN40.0 Benign prostatic hyperplasia without lower urinry tract sympComments:Encourage you to drink plenty of water, increasing to 48 - 60 ounces a day.Follow up:As scheduled
[2017-12-03 14:18] VITALS: BP 120/73
--- NOTE | 2017-12-03 14:32 | UC ---
Throat Pain/Nasal Jerome HPI - HPI Summary HPI Summary: Pt c/o ST X 3 days. Pt has been doing salt water and vinegar gargles for temporary relief. - History of Current Complaint Chief Complaint: UCGeneralIllness Stated Complaint: ST Time Seen by Provider: 12/03/17 14:10 Hx Obtained From: Patient Onset/Duration: Sudden Onset, Lasting Days, Still Present Severity: Moderate Pain Intensity: 0 Cough: None Associated Signs & Symptoms: Positive: Dysphagia - Epiglottits Risk Factors Epiglottis Risk Factors: Sudden Onset - Allergies/Home Medications Allergies/Adverse Reactions: Allergies Allergy/AdvReac Type Severity Reaction Status Date / Time No Known Allergies Allergy Verified 12/03/17 14:14 PMH/Surg Hx/FS Hx/Imm Hx Previously Healthy: Yes - Surgical History Surgical History: Yes Surgery Procedure, Year, and Place: Nasal Polyp, ~2007, [place]; Umbilical Herniorrhaphy, ~, [place] - Family History Known Family History: Positive: Hypertension - Social History Occupation: Retired Lives: With Family Alcohol Use: Rare Substance Use Type: None Smoking Status (MU): Heavy Every Day Tobacco Smoker Type: Smokeless Tobacco Amount Used/How Often: 1 can daily Length of Time of Smoking/Using Tobacco: Since Age 26 Review of Systems Constitutional: Negative Skin: Negative Eyes: Negative ENT: Sore Throat Respiratory: Negative Cardiovascular: Negative Gastrointestinal: Negative Genitourinary: Negative Motor: Negative Neurovascular: Negative Musculoskeletal: Negative Neurological: Negative Psychological: Negative Is Patient Immunocompromised?: No All Other Systems Reviewed And Are Negative: Yes Physical Exam Triage Information Reviewed: Yes Appearance: Well-Appearing Vital Signs: Initial Vital Signs Temp 98.7 F 12/03/17 14:12 Pulse 82 12/03/17 14:12 Resp 17 12/03/17 14:12 BP 120/73 12/03/17 14:12 Pulse Ox 95 12/03/17 14:12 Vital Signs Reviewed: Yes Eye Exam: Normal ENT Exam: Other ENT: Positive: Tonsillar swelling, Tonsillar exudate Dental Exam: Normal Neck exam: Normal Respiratory Exam: Normal Cardiovascular Exam: Normal Musculoskeletal Exam: Normal Neurological Exam: Normal Psychological Exam: Normal Skin Exam: Normal Diagnostics - Laboratory Diagnostic Studies Completed/Ordered: rapid strep: negative Throat Pain/Nasal Course/Dx - Differential Dx/Diagnosis Differential Diagnosis/HQI/PQRI: Pharyngitis, Tonsillitis Provider Diagnoses: tonsillitis Discharge - Sign-Out/Discharge Documenting (check all that apply): Patient Departure - Discharge Plan Condition: Stable Disposition: HOME Prescriptions: Penicillin VK 500 MG TAB(NF) [Penicillin VK 500 mg Tab] 500 mg PO Q8H #30 tab Patient Education Materials: Tonsillitis (ED) Referrals: Mae Weathers MD [Primary Care Provider] - If Needed Additional Instructions: Per institutional requirements, I have reviewed the chart, however, I was not consulted specifically or made aware of this patient by the above midlevel provider. I did not personally evaluate, interact with , or disposition this patient. - Billing Disposition and Condition Condition: STABLE Disposition: Home
--- NOTE | 2017-12-06 06:59 | UC ---
- Progress Note Progress Note: notify pt he has oral thrush nystatin oral susp called in 5 ml 4x day SWISH AND SWALLOW needs to see his PCP in follow up for further evaluation Discharge - Sign-Out/Discharge Documenting (check all that apply): Post-Discharge Follow Up - Discharge Plan Condition: Stable Disposition: HOME Prescriptions: Nystatin SUSPENSION* 500,000 units .SEE ORDER QID #480 ml Penicillin VK 500 MG TAB(NF) [Penicillin VK 500 mg Tab] 500 mg PO Q8H #30 tab Patient Education Materials: Tonsillitis (ED) Referrals: Mae Weathers MD [Primary Care Provider] - If Needed Additional Instructions: Per institutional requirements, I have reviewed the chart, however, I was not consulted specifically or made aware of this patient by the above midlevel provider. I did not personally evaluate, interact with , or disposition this patient. - Billing Disposition and Condition Condition: STABLE Disposition: Home
== END 2017-12-03 14:55 | disposition home or self-care (01) ==
LOC: UCCORT 14:00
DX: J03.90 Acute tonsillitis, unspecified (principal); B37.0 Candidal stomatitis; F17.220 Nicotine dependence, chewing tobacco, uncomplicated
CPT/HCPCS: 87070; 87651; 99212; G0463